=== PATIENT | female | born 1990 | race Caucasian/White ===

== ENCOUNTER 2016-08-24 14:06 | Inpatient (IN) ==
[2016-08-24] MEDS ORDERED: ZOFRAN IV PRN (21:05)
[2016-08-24] MEDS ORDERED: PEPCID PO PRN (21:05)
[2016-08-24] MEDS ORDERED: PEPCID IV PRN (21:05)
[2016-08-24] MEDS ORDERED: STADOL IV PRN ×3 (21:05)
[2016-08-24] MEDS ORDERED: AMBIEN PO PRN (21:05)
[2016-08-24] MEDS ORDERED: BRETHINE SUBQ PRN (21:05)
[2016-08-24] MEDS ORDERED: TYLENOL PO PRN (21:05)
[2016-08-24] MEDS ORDERED: KEFZOL 1 GM/D5W 50 ML IV PRN (21:05)
[2016-08-24] MEDS ORDERED: LR 1,000 ML IV SCH (21:15)
[2016-08-24] MEDS ORDERED: AMPICILLIN 2 GM/NS 100 ML IV ONE (23:00)
[2016-08-24] MEDS ORDERED: CYTOTEC PO ONE (23:00)
[2016-08-25 00:05] LABS: MANUAL DIFF NEEDED? NO
[2016-08-25 00:08] LABS: BASO% 0.1 % (0.0-0.8); EOS# 0.06 X1000 (0.0-0.7); EOS% 0.5 % (0.0-10.0); HEMATOCRIT 34.5 % (37.0-47.0); HEMOGLOBIN 11.9 g/dL (12.0-16.0); IMM GRAN# 0.04 X1000 (0.0-0.04); IMM GRAN% 0.3 % (0.0-0.5); LYMPH# 2.14 X1000 (1.2-3.4); LYMPH% 18.4 % (20.5-51.1); MCH 29.2 PG (27-31); MCHC 34.5 g/dL (33-37); MCV 84.8 FL (81-99); MONO# 0.69 X1000 (0.11-0.59); MONO% 5.9 % (1.7-9.3); NEUT% 74.8 % (42.2-75.2); PLT 196 X1000 (130-400); RBC 4.07 XMIL (4.2-5.4)
[2016-08-25] MEDS ORDERED: CYTOTEC PO SCH (03:00)
[2016-08-25] MEDS: AMPICILLIN 1 GM/NS 50 ML IV SCH ×3 (03:09→11:38)
[2016-08-25] MEDS ORDERED: PITOCIN 30 UNITS/LR 500 ML IV SCH (07:00)
[2016-08-25] MEDS ORDERED: XYLOCAINE-MPF 1% 5 ML ONE (09:04)
[2016-08-25] MEDS ORDERED: NAROPIN 0.2% ONE (09:04)
[2016-08-25] MEDS ORDERED: XYLOCAINE-MPF 2% ONE (14:35)
[2016-08-25] MEDS ORDERED: BENADRYL ONE (14:41)
[2016-08-25] MEDS ORDERED: TORADOL ONE (14:42)
[2016-08-25] MEDS ORDERED: FENTANYL ONE (14:42)
[2016-08-25] MEDS ORDERED: PITOCIN ONE (14:42)
[2016-08-25] MEDS ORDERED: DURAMORPH ONE (14:43)
[2016-08-25] MEDS ORDERED: ZOFRAN ONE (14:43)
[2016-08-25] MEDS ORDERED: NS 0 ML ONE (14:43)
[2016-08-25] MEDS ORDERED: PITOCIN 20 UNITS/LR 1,000 ML ONE (14:43)
[2016-08-25] MEDS ORDERED: METHERGINE ONE (14:44)
[2016-08-25] MEDS ORDERED: HEMABATE ONE (14:44)
[2016-08-25] MEDS ORDERED: NARCAN INJ PRN ×2 (15:00→15:57)
[2016-08-25] MEDS ORDERED: ZOFRAN ODT PO PRN ×2 (15:00→15:57)
[2016-08-25] MEDS ORDERED: MORPHINE IV PRN ×2 (15:00→15:58)
[2016-08-25] MEDS ORDERED: ZOFRAN IV PRN ×4 (15:00→15:57)
[2016-08-25] MEDS ORDERED: BENADRYL IV PRN ×2 (15:00→15:57)
--- NOTE | 2016-08-25 15:09 | HISTORY AND PHYSICAL ---
ADMITTING DIAGNOSES: 1. Post dates . 2. Failed induction of labor. SUMMARY: Allison Tucker is a 26-year-old primigravida who is at almost 41 weeks gestation. Her blood type is A positive. Rubella immune. Hepatitis B surface antigen, HIV are negative. Group B strep is positive. She did have an ultrasound yesterday which showed an estimated weight of 8 pounds. She was brought into labor and delivery last night and received Cytotec, and this morning we began Pitocin for induction of labor. In spite of this her cervix is still closed and thick, the is not engaged in the pelvis. After discussing options with the patient, we are proceeding with delivery. PAST MEDICAL HISTORY: Patient has no chronic medical or surgical illnesses. CURRENT MEDICATIONS: vitamins. ALLERGIES: To sulfa drugs. PHYSICAL EXAMINATION: GENERAL: Shows an obese, gravid female. VITAL SIGNS: Stable. She is afebrile. CARDIOVASCULAR: Regular rate and rhythm without murmurs, rubs, or gallops. PULMONARY: Clear. BREASTS: No masses. ABDOMEN: Gravid. CERVIX: As above. EXTREMITIES: Trace edema. IMPRESSION: 1. Post dates . 2. Failed induction of labor with signs consistent with cephalopelvic disproportion. PLAN: For these indications, we will proceed with delivery. Risks, benefits, possible complications, obstetrical indications and alternatives were discussed.
[2016-08-25] MEDS ORDERED: PEPCID IV ONE (15:15)
[2016-08-25] MEDS: TORADOL IV SCH ×2 (15:25→21:50)
[2016-08-25] MEDS ORDERED: PITOCIN IM PRN (15:43)
[2016-08-25] MEDS ORDERED: AMBIEN PO PRN (15:43)
[2016-08-25] MEDS ORDERED: PITOCIN 20 UNITS/LR 1,000 ML IV ONE (15:43)
[2016-08-25] MEDS ORDERED: M-M-R II VACCINE SUBQ ONE (15:43)
[2016-08-25] MEDS ORDERED: NORCO-5 PO PRN (15:43)
[2016-08-25] MEDS ORDERED: DULCOLAX PR PRN (15:43)
[2016-08-25] MEDS ORDERED: PERCOCET-10 PO PRN (15:43)
[2016-08-25] MEDS ORDERED: MYLICON PO PRN (15:43)
[2016-08-25] MEDS ORDERED: HYDROXYZINE IM PRN (15:43)
[2016-08-25] MEDS ORDERED: DEMEROL IM PRN (15:43)
[2016-08-25] MEDS ORDERED: HYDROXYZINE PO PRN (15:43)
[2016-08-25] MEDS ORDERED: BOOSTRIX VACCINE IM ONE (15:43)
[2016-08-25] MEDS ORDERED: PHENERGAN IM PRN (15:43)
[2016-08-25] MEDS ORDERED: PERCOCET-5 PO PRN (15:43)
[2016-08-25] MEDS ORDERED: DEMEROL PO PRN ×2 (15:43)
[2016-08-25] MEDS ORDERED: CYTOTEC PO PRN (15:43)
[2016-08-25] MEDS ORDERED: PITOCIN 10 UNITS/LR 1,000 ML IV SCH (15:45)
[2016-08-25] MEDS ORDERED: DEMEROL IV ONE (16:00)
[2016-08-25] MEDS ORDERED: EPHEDRINE ONE (16:03)
--- NOTE | 2016-08-25 16:23 | OPERATIVE NOTE ---
PROCEDURE DATE: 08/25/2016 SURGEON: Jason Diego MD ANESTHESIA: Epidural. OPERATION PERFORMED: Primary low transverse . PREOPERATIVE DIAGNOSES: 1. Post dates . 2. Failed induction of labor. POSTOPERATIVE DIAGNOSES: 1. Post dates . 2. Failed induction of labor. FINDINGS: At 1515 hours, a 7 pound 3 ounce female was delivered in vertex presentation. Apgars were 8 at 1 minute, and 9 at 5 minutes. SUMMARY: Patient was taken back to the operating room, where the epidural was dosed. Once satisfactory conduction anesthesia was demonstrated, her abdomen was prepped and draped in the usual fashion. A Guadarrama catheter was in the urinary bladder. A Pfannenstiel incision was made. This incision was taken down to the fascia. The fascia was excised transversely. The underlying rectus muscles were bluntly and sharply dissected free. The rectus muscle was in midline. The peritoneum was entered. Lower uterine segment was identified, a bladder flap was created. A low transverse incision was made across the myometrium. This incision was extended laterally using digital pressure. Membranes were ruptured revealing clear fluid. The infant's vertex delivered through this incision without difficulty. The nuchal cord was reduced. The shoulders and body delivered without complications. The oropharynx was bulb suctioned. The cord was clamped and cut. The infant was handed to the nurses for further care and evaluation. Cord blood was obtained. Placenta was manually removed. The uterus was delivered onto the abdominal wall and explored. All membrane fragments were removed. The myometrium was reapproximated using a running #1 chromic interlocking suture. Uterine atony responded to fundal massage, IV Pitocin, and IM Methergine. The uterus was placed back in the pelvic cavity. Uterine incision was irrigated with complete hemostasis being noted. Our first and second sponge, instrument, needle counts were reported as correct. The peritoneum was closed using running chromic suture. The third and final sponge, instrument, and needle counts were reported as correct. The fascia closed using running Vicryl sutures x2. The adipose tissue was reapproximated using a running Vicryl suture. The skin edges reapproximated using a subcuticular 3-0 Monocryl suture. Anesthesia estimated our blood loss at 400 mL. There were no complications. The patient went to the recovery room in stable condition. [facility]
[2016-08-25] MEDS: MYLICON PO SCH (20:12)
[2016-08-25] MEDS: PERICOLACE PO SCH (20:12)
[2016-08-25] MEDS: BUSPAR PO SCH (20:13)
[2016-08-26] MEDS: TORADOL IV SCH ×2 (04:02→13:12)
[2016-08-26 06:32] LABS: HEMATOCRIT 30.1 % (37.0-47.0); MCH 28.8 PG (27-31); MCHC 33.2 g/dL (33-37); MCV 86.7 FL (81-99); MPV 11.8 FL (7.4-10.4); RBC 3.47 XMIL (4.2-5.4)
[2016-08-26] MEDS: FERROUS SULFATE PO SCH (08:37)
[2016-08-26] MEDS: PRECARE PO SCH (08:37)
[2016-08-26] MEDS: BUSPAR PO SCH ×2 (08:37→20:39)
[2016-08-26] MEDS: MYLICON PO SCH ×5 (08:37→20:39)
[2016-08-26] MEDS: NORCO-10 PO PRN ×2 (14:11→20:39)
[2016-08-26] MEDS: MOTRIN PO PRN (14:11)
[2016-08-26] MEDS ORDERED: LR 1,000 ML IV SCH (15:43)
[2016-08-26] MEDS: PERICOLACE PO SCH (20:39)
[2016-08-27] MEDS: PRECARE PO SCH (08:02)
[2016-08-27] MEDS: FERROUS SULFATE PO SCH (08:02)
[2016-08-27] MEDS: BUSPAR PO SCH (08:03)
[2016-08-27] MEDS: MYLICON PO SCH ×3 (08:03→17:38)
[2016-08-27] MEDS: MOTRIN PO PRN (09:11)
[2016-08-27] MEDS: NORCO-10 PO PRN (09:12)
--- NOTE | 2016-08-27 15:05 | DISCHARGE SUMMARY ---
ADMISSION DATE: 08/24/2016 DISCHARGE DATE: 08/27/2016 PRINCIPAL DIAGNOSIS: Term intrauterine , post dates, failed induction. PRINCIPAL PROCEDURE: Primary low transverse section. HOSPITAL COURSE: This is a patient of Dr. Diego. She underwent a primary section. She had a female born weighing 7 pounds 3 ounces, Apgars were 8 and 9. Postoperatively, she did well. Postoperative hematocrit was 30. At this time, she is discharged home on Percocet for pain. She will follow up in the office in 2 weeks. Discharge instructions were given.
[2016-08-27 15:59] VITALS: BP 132/86
== END 2016-08-27 18:05 | disposition home or self-care (01) | DRG 765 ==
LOC: P.LD 20:12 → P.WC 08-25 18:18
PROVIDERS: ADMIT Obstetrics & Gynecology; ATTEND Obstetrics & Gynecology
PROC: 3E033VJ Introduction of Other Hormone into Peripheral Vein, Percutaneous Approach (ICD-10-PCS; 2016-08-25)
PROC: 10D00Z1 Extraction of Products of Conception, Low, Open Approach (ICD-10-PCS; principal; 2016-08-25 08:00)
DX: O32.4XX0 Maternal care for high head at term, not applicable or unspecified (principal); Z68.41 Body mass index [BMI] 40.0-44.9, adult; Z37.0 Single live birth; E66.9 Obesity, unspecified; O48.0 Post-term pregnancy; O99.824 Streptococcus B carrier state complicating childbirth; Z3A.40 40 weeks gestation of pregnancy; O61.0 Failed medical induction of labor; O99.214 Obesity complicating childbirth; O33.9 Maternal care for disproportion, unspecified; O69.1XX0 Labor and delivery complicated by cord around neck, with compression, not applicable or unspecified; O62.2 Other uterine inertia; O99.344 Other mental disorders complicating childbirth; F41.9 Anxiety disorder, unspecified; Z79.899 Other long term (current) drug therapy
CPT/HCPCS: 36415; 59025; 85025; 85027; 86592; J0290; J0595; J1200; J1885; J2175; J2210; J2274; J2405; J2590; J2795; J3010; J7050; J7120; S0028